=== PATIENT | female | born 1955 | race Caucasian/White ===

== ENCOUNTER 2020-08-26 19:40 | Emergency (ER) | payer MEDICARE, OTHER ==
[~2020-08-26] VITALS: Ht 172.7 cm; Wt 54.4 kg
[~2020-08-26 19:40] MED LIST: ACYCLOVIR200 MG PO; ALEVE PM CAPLE1 EACH PO; DEXILANT30 MG PO; ESTRADIOL0.5 MG; FISH OIL500 M1 PO; KEFLEX500 MG PO; METAMUCIL197.2 GM PO; NEXIUM 24HR22.3 MG PO; SUCRALFATE1 GM PO; TAB A VITE1 EAC1 PO; ZOVIRAX200 MG PO
--- NOTE | 2020-08-27 13:56 | EKG ---
[facility] [address] [facility] [place], [place] [address] Signed Sinus bradycardia Possible Left atrial enlargement Left ventricular hypertrophy Abnormal ECG No previous ECGs available Confirmed by OSVALDO GARCIA DO ([id number]) on 08/27/2020 1:56:01 PM Electronically Signed By: OSVALDO GARCIA DO 08/27/20 1356 PATIENT NAME: OLIVIA MCCULLOUGH Electrocardiogram DATE OF : 51 PHYSICIAN: OSVALDO GARCIA DO REPORT #: [id number] REPORT IS CONFIDENTIAL AND NOT TO BE RELEASED WITHOUT AUTHORIZATION
--- NOTE | 2020-08-27 13:57 | EKG ---
[facility] [address] [facility] [place], [place] [address] Signed Normal sinus rhythm Minimal voltage criteria for LVH, may be normal variant Borderline ECG When compared with ECG of 26-AUG-2020 19:48, (Unconfirmed) No significant change was found Confirmed by OSVALDO GARCIA DO ([id number]) on 08/27/2020 1:56:48 PM Electronically Signed By: OSVALDO GARCIA DO 08/27/20 1357 PATIENT NAME: OLIVIA MCCULLOUGH Electrocardiogram DATE OF : 51 PHYSICIAN: OSVALDO GARCIA DO REPORT #: [id number] REPORT IS CONFIDENTIAL AND NOT TO BE RELEASED WITHOUT AUTHORIZATION
== END 2020-08-26 23:41 | disposition short-term general hospital (02) ==
LOC: ED 19:40
DX: I21.4 Non-ST elevation (NSTEMI) myocardial infarction (principal); Z20.822 Contact with and (suspected) exposure to COVID-19; E78.00 Pure hypercholesterolemia, unspecified; K21.9 Gastro-esophageal reflux disease without esophagitis; Z87.891 Personal history of nicotine dependence; Z88.1 Allergy status to other antibiotic agents; Z79.899 Other long term (current) drug therapy
CPT/HCPCS: 71045; 80053; 83735; 84484; 85025; 93005; 93010; 96374; 96375; 96376; 99285-25; C9113; C9803; J1650; J2270; J2405; U0003

== ENCOUNTER 2021-07-23 07:06 | Emergency (ER) | payer MEDICARE, OTHER ==
[~2021-07-23] VITALS: Ht 172.7 cm; Wt 54.4 kg
[2021-07-23] MEDS ORDERED: LO-DOSE ASPIRIN81 M1 PO (07:23)
--- NOTE | 2021-07-25 15:56 | EKG ---
[facility] [address] [facility] [place] [address] Signed Sinus bradycardia Minimal voltage criteria for LVH, may be normal variant ( Jarred product ) Borderline ECG When compared with ECG of 26-AUG-2020 21:03, No significant change was found Confirmed by LINA JULIO MD ([id number]) on 07/25/2021 3:56:41 PM Electronically Signed By: LINA JULIO MD 07/25/21 1556 PATIENT NAME: OLIVIA MCCULLOUGH Electrocardiogram DATE OF : 51 PHYSICIAN: LINA JULIO MD REPORT #: [id number] REPORT IS CONFIDENTIAL AND NOT TO BE RELEASED WITHOUT AUTHORIZATION
== END 2021-07-23 11:03 | disposition home or self-care (01) ==
LOC: ED 07:06
DX: R42 Dizziness and giddiness (principal); H61.22 Impacted cerumen, left ear; E78.00 Pure hypercholesterolemia, unspecified; K21.9 Gastro-esophageal reflux disease without esophagitis; Z87.891 Personal history of nicotine dependence; Z88.1 Allergy status to other antibiotic agents; Z79.82 Long term (current) use of aspirin; Z79.899 Other long term (current) drug therapy
CPT/HCPCS: 36415; 80048; 84484; 85025; 93005; 93010; 99285-25

== ENCOUNTER 2021-12-22 16:47 | Emergency (ER) | payer MEDICARE, OTHER ==
[~2021-12-22] VITALS: Ht 172.7 cm; Wt 54.4 kg
--- NOTE | ~2021-12-22 | EKG ---
[facility] [address] [facility] [place], [place] [address] Draft EK completed, results pending confirmation PATIENT NAME: OLIVIA MCCULLOUGH SISI Electrocardiogram DATE OF : 51 PHYSICIAN: PRELIMINARY REPORT #: [id number] REPORT IS CONFIDENTIAL AND NOT TO BE RELEASED WITHOUT AUTHORIZATION
[~2021-12-22 16:47] MED LIST changes: +LO-DOSE ASPIRIN81 M1 PO
[2021-12-22] MEDS ORDERED: ACYCLOVIR400 MG PO (16:54)
[2021-12-22] MEDS ORDERED: ONDANSETRON HCL4 MG PO (16:54)
[2021-12-22] MEDS ORDERED: ROSUVASTATIN CA10 MG PO (16:54)
[2021-12-22] MEDS ORDERED: OMEPRAZOLE20 MG PO (16:55)
== END 2021-12-22 20:45 | disposition short-term general hospital (02) ==
LOC: ED 16:47
DX: S72.001A Fracture of unspecified part of neck of right femur, initial encounter for closed fracture (principal); S50.311A Abrasion of right elbow, initial encounter; K21.9 Gastro-esophageal reflux disease without esophagitis; W01.0XXA Fall on same level from slipping, tripping and stumbling without subsequent striking against object, initial encounter; Z87.891 Personal history of nicotine dependence; Z88.1 Allergy status to other antibiotic agents; Z79.899 Other long term (current) drug therapy; Z79.82 Long term (current) use of aspirin
CPT/HCPCS: 36415; 71045; 73502; 80053; 85025; 87502; 93005; 93010; C9803; J1170; U0003

== ENCOUNTER 2023-06-14 07:29 | Day surgery (SDC) | payer MEDICARE, OTHER ==
[2023-06-13 11:23] VITALS: BP 94/42
[~2023-06-14] VITALS: Ht 172.7 cm; Wt 54.5 kg
--- NOTE | ~2023-06-14 | OR ---
[facility] [address] [place], [place] [address] Draft DATE OF OPERATION: 06/14/2023 SURGEON: Rocky Machado MD PREOPERATIVE DIAGNOSIS: Right facial extruding hardware. POSTOPERATIVE DIAGNOSIS: Right facial extruding hardware. PROCEDURE: Removal of right facial hardware. 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 PREOPERATIVE HISTORY: Hanh is a 67-year-old lady who had a facial fracture 20 years ago. This was plated, appears to be a tripod fracture with three plates per x-ray, one on the superior lateral right orbital rim, one on the right inferior rim and one posteriorly probably in the pterygoids. In any event, one of the screws from the infraorbital plate has been extruding, poking out nearly through skin in the medial portion of the plate. This has been uncomfortable for her and she is taken to the operating room for removal of this extruding foreign body. OPERATIVE PROCEDURE AND FINDINGS: After informed consent, the patient was taken to the operating room, placed in supine position where general LMA anesthesia was induced. The patient and procedure were verified. Right face was sterilely prepped and draped. Preop x-rays reviewed throughout. The screw in question was identified. 1% lidocaine with epinephrine injected around this. A small transverse incision made over the screw and sharp and blunt dissection revealed the head. The screwdriver was used to remove the screw hemostats. Finished removal. The medial portion of the plate had bent outward and was protruding portion of this about half a cm was removed and normal conformation of the plate was then obtained. No further protruding material. The bleeding was minimal. The wound was closed with Steri-Strips. The patient tolerated the procedure well, was awakened, extubated, transported to recovery room in good condition. COMPLICATIONS: None. PATIENT NAME: HANH MCCULLOUGH OPERATIVE REPORT DATE OF : 51 REPORT #: [id number] PHYSICIAN: ROCKY MACHADO MD PCP: GEOFFREY LYLE MD REPORT IS CONFIDENTIAL AND NOT TO BE RELEASED WITHOUT AUTHORIZATION [facility] [address] [place] [address] Draft ESTIMATED BLOOD LOSS: Minimal. SPECIMEN: Plate and screw given to the patient. DRAINS: None. Rocky Machado MD GC/LUCIA /[id number] Copies: ~ PATIENT NAME: HANH MCCULLOUGH OPERATIVE REPORT DATE OF : 51 REPORT #: [id number] PHYSICIAN: ROCKY MACHADO MD PCP: GEOFFREY LYLE MD REPORT IS CONFIDENTIAL AND NOT TO BE RELEASED WITHOUT AUTHORIZATION
[~2023-06-14 07:29] MED LIST changes: +ACYCLOVIR400 MG PO; +CALCIUM500 MG PO; +OMEGA 3 1,0001 EACH PO; +OMEPRAZOLE20 MG PO; +ONDANSETRON HCL4 MG PO; +PRED FORTE5 ML OP; +ROSUVASTATIN CA10 MG PO; +VIT C-ECHINACE1 EACH PO
--- NOTE | 2023-06-14 07:38 | NUR ---
ROUNDS. PT RECEIVING NURSING CARE. DID NOT INTERRUPT. PROVIDED PRAYER.
[2023-06-14 07:54] VITALS: BP 114/35
--- NOTE | 2023-06-14 07:55 | NUR ---
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 EKG ORDERED AND BMP.
[2023-06-14 08:06] LABS: ANION GAP 13.3 (7-21); BUN/CREATININE RATIO 26.76 (6.0-28.6); CALCIUM 9.3 mg/dL (8.5-10.1); CREATININE, SERUM 0.71 mg/dL (0.55-1.02); POTASSIUM 4.3 mmol/L (3.5-5.1)
--- NOTE | 2023-06-14 08:49 | NUR ---
DR CRANE IN TO SEE PT.
--- NOTE | 2023-06-14 09:41 | NUR ---
06/14/23 0941 Vitale,Shelly Damon 0931: PATIENT ARRIVED TO PACU ASLEEP. FOGGING MASK. 0939: PATIENT AWAKE AND TALKING. O2 MASK REMOVED.
[2023-06-14 09:47] VITALS: BP 113/51
[2023-06-14 10:55] VITALS: BP 125/45
--- NOTE | 2023-06-14 11:40 | NUR ---
AMB WELL, VOIDS QS. HAS DRANK 2 CUPS COFFEE AND ATE CRACKERS.
--- NOTE | 2023-06-14 20:04 | EKG ---
[facility] [address] [facility] [place] [address] Signed Sinus bradycardia Otherwise normal ECG When compared with ECG of 22-DEC-2021 18:41, premature ventricular complexes are no longer present Confirmed by Bernice Galo MD () on 06/14/2023 8:03:56 PM Electronically Signed By: BERNICE GALO MD 06/14/232003 PATIENT NAME: OLIVIA MCCULLOUGH Electrocardiogram DATE OF : 51 PHYSICIAN: BERNICE GALO MD REPORT #: [id number] REPORT IS CONFIDENTIAL AND NOT TO BE RELEASED WITHOUT AUTHORIZATION
== END 2023-06-14 11:25 | disposition home or self-care (01) ==
LOC: DS 07:29 → OPS 07:29 → DS 07:30 → OPS 09:00
PROVIDERS: Nurse Anesthetist, Certified Registered; ATTEND Otolaryngology
PROC: 0NPW04Z Removal of Internal Fixation Device from Facial Bone, Open Approach (ICD-10-PCS; principal; 2023-06-14 09:00)
DX: T84.298A Other mechanical complication of internal fixation device of other bones, initial encounter (principal); Z88.1 Allergy status to other antibiotic agents
CPT/HCPCS: 36415; 80048; 93005; 93010; J2001; J2405; J2704; J3010; J7121

== ENCOUNTER 2024-06-18 07:24 | Day surgery (SDC) | payer MEDICARE, OTHER ==
[~2024-06-18] VITALS: Ht 172.7 cm; Wt 52.7 kg
[~2024-06-18 07:24] MED LIST changes: +IBLOOD GLUCOSE TEST STRIP 1 EA TEST VI PRN; +LACTATED RINGER'S 1,000 ML IV SCH; +LIDOCAINE HCL 1% 5 ML SDV INJ ONE; +LIDOCAINE HCL 4% 50 ML BTL TOP SCH; +MIDAZOLAM HCL 5 MG/5 ML VIAL IV PRN; +fentaNYL citrate 100 MCG/2 ML VIAL IV PRN
[2024-06-18 07:43] VITALS: BP 113/47
[2024-06-18] MEDS ORDERED: SERTRALINE HCL25 MG PO (07:47)
[2024-06-18] MEDS ORDERED: VENTOLIN HFA18 GM INH (07:48)
[2024-06-18] MEDS ORDERED: fentaNYL citrate 100 MCG/2 ML VIAL ONE (07:53)
[2024-06-18] MEDS ORDERED: MIDAZOLAM HCL 5 MG/5 ML VIAL ONE (07:53)
--- NOTE | 2024-06-18 08:01 | NUR ---
SHELIA WAITING WITH PT STATES SHES COMFORTABLE.
--- NOTE | 2024-06-18 08:33 | NUR ---
06/18/24 0833 Arlin Mendez OXYGEN SATURATION REMAINS 100% ON 3L VIA NC. OXYGEN IS REDUCED TO 2L VIA NC.
[2024-06-18 09:13] VITALS: BP 121/67
--- NOTE | 2024-06-19 09:13 | OR ---
[facility] [address] [place], [place] [address] Signed DATE OF OPERATION: 06/18/2024 SURGEON: Evert Forte MD PREOPERATIVE DIAGNOSES: 1. Recurrent episodic dysphagia, known hiatal hernia. 2. Multiple medical problems including chronic obstructive pulmonary disease, history of myocardial infarction (non-stentable). POSTOPERATIVE DIAGNOSES: No evidence of stricture; shallow fissure of distal esophagus. Normal stomach and duodenum. Poor flap valve. PROCEDURE: Esophagogastroduodenoscopy with biopsy. ANESTHESIA: Intravenous sedation, fentanyl 100 mcg and Versed 1 mg. INDICATIONS FOR THE PROCEDURE: This 68-year-old white woman is well known to me from the past having undergone upper endoscopy in 2016. She is known to have a small hiatal hernia and has taken PPI medications for this with good result overall. The patient is a longstanding smoker, having recently quit (again) in March. She has had progressive COPD and indeed suffered myocardial infarction, which was not amenable to stenting in the past. She does have episodic dysphagia. 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 She is admitted to undergo upper endoscopy and possible dilation depending on findings and understands the risk of bleeding, infection, and perforation. FINDINGS: There was no evidence of stricture or neoplasm. There was superficial fissuring of the mucosa of the esophagus, which was otherwise normal in appearance. There was no evidence of felinization of the esophagus, though some suspicion remains for possible eosinophilic esophagitis. The flap valve was poor, though there was no large hiatal hernia proper. Stomach and duodenum were normal. CLOtest was negative 15 minutes post procedure. PROCEDURE IN DETAIL: The patient was brought to the endoscopy suite and placed in lateral decubitus position after undergoing lidocaine hypopharyngeal anesthesia. A bite block was placed after Electronically Signed By: EVERT FORTE MD 06/19/24 0913 PATIENT NAME: OLIVIA MCCULLOUGH OPERATIVE REPORT DATE OF : 51 REPORT #: [id number] PHYSICIAN: EVERT FORTE MD PCP: GEOFFREY LYLE MD REPORT IS CONFIDENTIAL AND NOT TO BE RELEASED WITHOUT AUTHORIZATION [facility] [address] [place], [place] [address] Signed satisfactory intravenous sedation with full cardiopulmonary monitoring. An Olympus video upper endoscope was passed into the hypopharynx. The vocal cords were normal. Scope was easily passed into the esophagus throughout its length, it appeared essentially normal, although there was some minor superficial fissuring of the distal portion. Scope was passed to the stomach, which was insufflated with air. There was no sign of bile within the stomach. Rugal folds were normal. Antrum was reasonably normal as was the pylorus. The scope was passed into the duodenum, which was normal. Biopsies taken of the duodenum to assess for celiac disease. The scope was withdrawn and biopsies then taken of the antrum for both ELIZABETH and pathologic testing. Retroflexed view showed a somewhat effaced flap valve, but no large hiatal hernia proper. The scope was withdrawn to the distal esophagus and biopsies were taken of that area. The scope withdrawn to the mid esophagus and additional biopsies obtained. There was no sign of concentric folds of the esophagus (felinization), though I still suspect the possibility of the eosinophilic esophagitis. Given that there was no distinct stricture, I did not feel the hazard of dilation was appropriate on this occasion. The scope was removed. The patient was taken to the recovery room in good condition. CONCLUDING DIAGNOSIS: No obvious cause of dysphagia. We will await pathology report to assess for the eosinophilic esophagitis. She may have a primary dysmotility syndrome as well. We will order a video esophagram to grossly estimate that possibility and see her in the office after video esophagram is complete. She should continue with her PPI medication (omeprazole) in the meantime. MD RU Lindquist/VICKIL /[id number] cc: Geoffrey Lyle MD Copies: GEOFFREY LYLE DMD ~ Electronically Signed By: EVERT FORTE MD 06/19/24 0913 PATIENT NAME: OLIVIA MCCULLOUGH OPERATIVE REPORT DATE OF : 51 REPORT #: [id number] PHYSICIAN: EVERT FORTE MD PCP: GEOFFREY LYLE MD REPORT IS CONFIDENTIAL AND NOT TO BE RELEASED WITHOUT AUTHORIZATION
--- NOTE | 2024-06-21 15:13 | PATH ---
[facility] [address] [place], [place] [address] Signed SPECIMEN(S): A DUODENUM BIOPSY SPECIMEN(S): B ANTRUM BIOPSY SPECIMEN(S): C LOWER ESOPHAGUS BIOPSY SPECIMEN(S): D MIDDLE ESOPHAGEAL BIOPSY SPECIMEN SOURCE: A. DUODENUM BIOPSY B. ANTRUM BIOPSY C. LOWER ESOPHAGUS BIOPSY D. MIDDLE ESOPHAGEAL BIOPSY CLINICAL HISTORY: GERD, dysphagia. Post: Poss eosinophilic esophagitis, no stricture, hiatal hernia. FINAL PATHOLOGIC DIAGNOSIS: A. Duodenum, biopsy: - Duodenal mucosa with no significant pathologic changes B. Stomach, antrum, biopsy: - Gastric antral mucosa with reactive gastropathy - Negative for Helicobacter pylori with HE stains C. Esophagus, distal, biopsy: - Esophageal squamous mucosa with no significant pathologic changes D. Esophagus, mid, biopsy: - Esophageal squamous mucosa with no significant pathologic changes BRP MICROSCOPIC EXAMINATION: Histologic sections of all submitted blocks are examined by light microscopy. These findings, together with the gross examination, support the pathologic diagnosis. GROSS DESCRIPTION: A. The specimen, labeled and designated "Franklin Mccullough, duodenum biopsy," is received in formalin and consists of one samuels soft tissue fragment, 0.5 cm. Entirely submitted in (A1). B. The specimen, labeled and designated "Franklin Mccullough, antrum biopsy," is received in formalin and consists of one samuels soft tissue fragment, 0.4 cm. Entirely submitted in (B1). C. The specimen, labeled and designated "Franklin Mccullough, lower esophagus biopsy," is received in formalin and consists of two samuels soft tissue fragments, ranging PATIENT NAME: OLIVIA MCCULLOUGH PATHOLOGY DATE OF : 51 REPORT #: [id number] PHYSICIAN: [facility] PCP: GEOFFREY LYLE MD REPORT IS CONFIDENTIAL AND NOT TO BE RELEASED WITHOUT AUTHORIZATION [facility] [address] [place], [place] [address] Signed from 0.2-0.4 cm. Entirely submitted in (C1). D. The specimen, labeled and designated "Franklin Mccullough, middle esophageal biopsy," is received in formalin and consists of three samuels soft tissue fragments, ranging from 0.4-0.6 cm. Entirely submitted in (D1). AB (under the direct supervision of a pathologist) The Gross Description was prepared using a voice recognition system. The report was reviewed for accuracy; however, sound-alike word errors, addition and/or deletions may occur. If there is any question about this report, please contact Client Services. ADDITIONAL NOTES: Immunohistochemical and/or in situ hybridization studies if performed in this case included appropriate positive controls that reacted as expected. This test was developed and its performance characteristics determined by [facility]. It has not been cleared or approved by the U.S. Food and Drug Administration. The FDA has determined that such clearance or approval is not necessary. This test is used for clinical purposes. It should not be regarded as investigational or for research. [facility] is certified under the Clinical Laboratory Improvement Amendments of 1988 (CLIA) as qualified to perform high complexity clinical laboratory testing. Technical component was performed by [facility], [address] [place] [id number] (CLIA# [id number]). Professional interpretation was performed by [facility], [address] [place] [id number] (CLIA#: [id number]). Diagnostician: Tom Ren MD Pathologist Electronically Signed 06/21/2024 Copies: ~ PATIENT NAME: OLIVIA MCCULLOUGH PATHOLOGY DATE OF : 51 REPORT #: [id number] PHYSICIAN: [facility] PCP: GEOFFREY LYLE MD REPORT IS CONFIDENTIAL AND NOT TO BE RELEASED WITHOUT AUTHORIZATION
== END 2024-06-18 09:20 | disposition home or self-care (01) ==
LOC: OPS 07:24 → DS 07:25 → OPS 08:15
PROVIDERS: ATTEND Surgery
PROC: 0DB58ZX Excision of Esophagus, Via Natural or Artificial Opening Endoscopic, Diagnostic (ICD-10-PCS; 2024-06-18)
PROC: 0DB68ZX Excision of Stomach, Via Natural or Artificial Opening Endoscopic, Diagnostic (ICD-10-PCS; 2024-06-18)
PROC: 0DB98ZX Excision of Duodenum, Via Natural or Artificial Opening Endoscopic, Diagnostic (ICD-10-PCS; principal; 2024-06-18 08:15)
DX: R13.19 Other dysphagia (principal); K31.89 Other diseases of stomach and duodenum; J44.9 Chronic obstructive pulmonary disease, unspecified; K21.9 Gastro-esophageal reflux disease without esophagitis; I25.2 Old myocardial infarction; Z87.891 Personal history of nicotine dependence; Z79.899 Other long term (current) drug therapy; Z88.0 Allergy status to penicillin; Z88.1 Allergy status to other antibiotic agents
CPT/HCPCS: 88305; G0500; J2250; J3010; J7121